=== PATIENT | female | born 1965 | race Asian ===

== ENCOUNTER 2019-11-28 04:14 | Inpatient (IN) | payer BC, MEDICARE ==
[~2019-11-28] VITALS: Ht 152.4 cm; Wt 63.4 kg
[2019-11-28] MEDS ORDERED: ATOR10TA84 PO (04:27)
[2019-11-28] MEDS ORDERED: GABA-1181 PO (04:27)
[2019-11-28] MEDS ORDERED: CLON0.1T83 PO (04:27)
[2019-11-28] MEDS ORDERED: LOSA25TA21 PO (04:27)
[2019-11-28] MEDS ORDERED: ASPIRIN 81 MG CHEWABLE TABLET PO ONE (04:45)
[2019-11-28] MEDS ORDERED: NITROGLYCERIN 0.3 MG SUBLINGUAL TABLET #100 SL ONE (05:00)
[2019-11-28] MEDS ORDERED: NITROGLYCERIN 2% (1 GM=INCH) PACKET TP ONE (05:15)
[2019-11-28] MEDS ORDERED: NITROGLYCERIN 0.4 MG SUBLINGUAL TABLET #25 SL ONE ×2 (05:30→05:45)
[2019-11-28 05:32] LABS: BASOPHILS % (AUTO) 1.2 % (0.0-2.0); EOSINOPHILS % (AUTO) 2.4 % (1.0-6.0); HEMATOCRIT 34.7 % (36-46); HEMOGLOBIN 11.7 g/dL (12.0-16.0); LYMPHOCYTES # (AUTO) 1.3 K/uL (1.0-4.8); LYMPHOCYTES % (AUTO) 14.9 % (22.0-44.0); MEAN CORPUSCULAR HEMOGLOBIN 31.4 pg (26.0-34.0); MEAN CORPUSCULAR HGB CONC 33.8 G/dL (31.0-37.0); MEAN CORPUSCULAR VOLUME 93 fL (80-100); MONOCYTES # (AUTO) 0.6 K/uL (0.1-1.0); MONOCYTES % (AUTO) 6.5 % (2.0-9.0); NEUTROPHILS # (AUTO) 6.4 K/uL (1.8-7.7); PLATELET COUNT (AUTO) 249 K/uL (150-450); RED BLOOD CELL COUNT(AUTO) 3.74 MIL/uL (4.00-5.20); RED CELL DISTRIBUTION WIDTH 14.8 % (11.5-14.5)
[2019-11-28 05:39] LABS: CREATININE 9.58 mg/dL (0.60-1.30); POTASSIUM 5.1 mmol/L (3.5-5.1)
[2019-11-28] MEDS ORDERED: MORPHINE SULFATE 2 MG/ML SYRINGE IVP ONE (05:45)
[2019-11-28 06:05] LABS: BILIRUBIN,TOTAL 0.5 mg/dL (0.1-1.0)
[2019-11-28 06:07] LABS: COVID AG,FIA SOURCE NASOPHARYNGEAL
[2019-11-28] MEDS ORDERED: ACETAMINOPHEN 325 MG TABLET PO PRN (06:15)
[2019-11-28] MEDS ORDERED: 0.9% SODIUM CHLORIDE 10 ML SYRINGE IVP PRN (06:15)
[2019-11-28] MEDS ORDERED: ONDANSETRON HCL 4 MG/2 ML VIAL IVP PRN (06:15)
[2019-11-28 09:00] VITALS: BP 166/86
[2019-11-28] MEDS ORDERED: GABAPENTIN 300 MG CAPSULE PO SCH (09:30)
[2019-11-28] MEDS: CloNIDine HCL 0.1 MG TABLET PO SCH ×2 (09:30→10:50)
[2019-11-28 11:50] VITALS: BP 163/78
[2019-11-28 16:43] VITALS: BP 136/76
[2019-11-28] MEDS ORDERED: ATORVASTATIN CALCIUM 10 MG TABLET PO SCH (21:00)
[2019-11-28] MEDS ORDERED: LOSARTAN POTASSIUM 25 MG TABLET PO SCH (21:00)
== END 2019-11-28 17:40 | disposition home or self-care (01) | DRG 291 ==
LOC: EMS 04:16 → 5N 07:07
PROVIDERS: ADMIT Hospitalist; ATTEND Hospitalist
PROC: 5A1D70Z Performance of Urinary Filtration, Intermittent, Less than 6 Hours Per Day (ICD-10-PCS; principal; 2019-11-28)
DX: I13.2 Hypertensive heart and chronic kidney disease with heart failure and with stage 5 chronic kidney disease, or end stage renal disease (principal); N18.6 End stage renal disease; E87.1 Hypo-osmolality and hyponatremia; D63.1 Anemia in chronic kidney disease; E11.22 Type 2 diabetes mellitus with diabetic chronic kidney disease; E11.21 Type 2 diabetes mellitus with diabetic nephropathy; E11.40 Type 2 diabetes mellitus with diabetic neuropathy, unspecified; E78.00 Pure hypercholesterolemia, unspecified; E78.5 Hyperlipidemia, unspecified; E21.3 Hyperparathyroidism, unspecified; F17.210 Nicotine dependence, cigarettes, uncomplicated; Z99.2 Dependence on renal dialysis; Z79.899 Other long term (current) drug therapy; Z71.6 Tobacco abuse counseling
CPT/HCPCS: 87340; 87426; 93005; J2270; 36415-L1; 36415-TC; 71045-TC